=== PATIENT | male | born 1970 | race Hispanic/Latino ===

== ENCOUNTER 2024-07-22 03:00 | Emergency (ER) | payer SELFPAY ==
[2024-07-22 03:04] VITALS: BP 179/113
[2024-07-22 03:50] LABS: Urine Albumin Negative (Neg - Trace); Urine Bilirubin Negative (Negative); Urine Character Clear (Clear); Urine Color Straw; Urine Glucose Negative (Negative); Urine Ketone Negative (Negative); Urine Leukocyte Negative (Negative); Urine Nitrite Negative (Negative); Urine Occult Blood Negative (Negative); Urine Urobilinogen Negative (Neg - 1+)
[2024-07-22 03:55] LABS: % Basophils 0.4 % (0-2); % Eosinophils 1.4 % (0-6); % Immature Granulocytes 0.4 % (0-0.5); % Lymphocytes 23.1 % (20.5-51.1); % Monocytes 8.8 % (1.7-9.3); % Neutrophils 65.9 % (42.2-75.2); Absolute Eosinophils 0.1 10^3/uL (0-0.7); Absolute Lymphocytes 2.2 10^3/uL (1.2-3.4); Absolute Monocytes 0.8 10^3/uL (0.1-0.6); Absolute Neutrophils 6.2 10^3/uL (1.4-6.5); Hematocrit 43.1 % (39.0-52.0); Hemoglobin 14.8 g/dL (13.0-18.0); Mean Corp Hgb Conc. 34.3 g/dL (33.0-37.0); Mean Corpuscular Hgb 28.7 pg (27.0-31.0); Mean Corpuscular Volume 83.5 fL (80.0-94.0); Mean Platelet Volume 11.1 fL (7.4-10.4); Nucleated Red Blood Cells % 0 % (-); Platelet Count 211 10^3/uL (130-400); Red Blood Cell Count 5.16 10^6/uL (4.70-6.10); Red Cell Dist. Width 12.7 % (11.5-14.5); White Blood Cell Count 9.4 10^3/uL (4.8-10.8)
--- NOTE | 2024-07-22 03:57 | ED.GENMED ---
History of Present Illness
<Heather Beltran MD - Last Filed: 07/22/24 05:45>
General
Chief Complaint: Abdominal Pain
Source: patient
Exam Limitations: none
Time Seen by Provider: 07/22/24 03:57
<SURESH French - Last Filed: 07/22/24 04:27>
History of Present Illness
History of Present Illness:
Pt is a 53 y/o M with pmhx of HTN with complaints of left sided abdominal pain x 3 days. The pain is located in the LLQ > LUQ and left flank. There is associated mild abdominal distension and constipation. His last bowel movement was yesterday
afternoon with hard stool. He has not had this before. Denies nausea, vomiting, fever, changes in urination, and blood in stool. Denies any recent antibiotic use or history of kidney stones.
Past History
<SURESH French - Last Filed: 07/22/24 04:27>
Past History
ED Past Medical History: HTN
ED Past Surgical History: Orthopedic (back surgery, knee surgery)
Social History
Tobacco: Smoker
Alcohol: Occasional
Drug: None
Personal:
Living: with family
Review of Systems
<SURESH French - Last Filed: 07/22/24 04:27>
Review of Systems
Allergies reviewed?: Yes
Constitutional: Reports no symptoms
EENT: Reports no symptoms
Respiratory: Reports no symptoms
Cardiac: Reports no symptoms
ABD/GI: Reports abdominal pain (left) and constipated
: Reports flank pain (left)
Musculoskeletal: Reports no symptoms
Skin: Reports no symptoms
Neurological: Reports no symptoms
Endocrine: Reports no symptoms
Hematologic/Lymphatic: Reports no symptoms
Psychiatric: Reports no symptoms
Phy Exam
<Heather Beltran MD - Last Filed: 07/22/24 05:45>
Physical Exam
Physical Exam:
Physical Exam
General: no apparent distress, not acutely ill
Neck: supple.
Heart: s1/s2 regular rate and rhythm, no murmur. equal radial and femoral pulses bilaterally.
Lungs: no acute respiratory distress. clear bilaterally
Abdomen: Soft throughout. Mildly distended. Normal bowel sounds. Left flank tenderness. No pulsatile mass
Neuro: alert and oriented. no focal neurological deficits
Skin: no rash
Psychiatric: well kept. interactive and cooperative
Extremities: no edema. no calf tenderness. negative homans. good distal pulses
<SURESH French - Last Filed: 07/22/24 04:27>
General Physical Exam
General Presentation: well appearing and mild distress
General age: appears stated age
General Skin: warm and dry
General Habitus: normal
General Mental: alert
General Hydration: appears well hydrated
ENT Exam
ENT Exam: EOMI, TM's normal, pharynx normal and neck supple
Eye Exam
Eye Exam: PERRL, EOMI, cornea clear and conjunctiva normal
Cardiovascular Exam
Cardiovascular Exam: regular rate/rhythm and normal peripheral pulses
Pulmonary Exam
Pulmonary Exam: lungs clear, no respiratory distress, no rales, chest non tender, no crackles, no rhonchi, no stridor, no wheezing and no cough
Gastrointestinal Exam
Gastrointestinal Exam: abnormal bowel sounds, cva tenderness (left) and distended
Palpation: left upper quadrant: Moderate tenderness, left lower quadrant: Moderate tenderness, right upper quadrant: No tenderness and right lower quadrant: No tenderness
Auscultation of Abdomen: hypoactive
Neurological Exam
Neurological Exam: alert, oriented x3, CN II-XII intact, no motor deficits, normal reflexs, no sensory deficits and speech normal
Musculoskeletal Exam
Musculoskeletal Exam: full ROM, no edema and neuro vasc intact
Skin Exam
Skin Exam: normal color and warm/dry
Psychiatric Exam
Psychiatric Exam: normal mood/affect
Course
<Heather Beltran MD - Last Filed: 07/22/24 05:45>
Orders/Labs/Results
Orders:
Orders
07/22/24 03:40
Complete Blood Count/With Diff Urgent
Comprehensive Metabolic Panel Urgent
Lipase Urgent
Urinalysis Urgent
Date Specimen was Collected: 07/22/24
Time Specimen was Collected: 03:34
07/22/24 04:25
Abdomen/Pelvis w Contrast CT [CT Abd/pelvis W Iv Cont] Urgent
Comment:
Reason For Exam: LLQ and left flank pain
07/22/24 04:35
Ketorolac [Toradol] 30 mg .ROUTE .STK-MED ONE
Ketorolac [Toradol] 30 mg IV NOW STA
07/22/24 05:35
diazePAM [Valium Injection] 5 mg IV NOW STA
Abnormal Lab Results
07/22/24
03:40
MPV 11.1 H fL
(7.4-10.4)
Absolute Monos (auto) 0.8 H 10^3/uL
(0.1-0.6)
Glucose 116 H mg/dl
(70-99)
07/22/24 03:40
07/22/24 03:40
Vital Signs
Initial and Last Documented VS:
Initial Vital Signs
Temp Pulse Resp BP Pulse Ox
98.4 F 75 18 179/113 98
07/22/24 03:04 07/22/24 03:04 07/22/24 03:04 07/22/24 03:04 07/22/24 03:04
Last Documented Vital Signs
Temp Pulse Resp BP Pulse Ox
98.4 F 65 14 150/93 97
07/22/24 03:04 07/22/24 04:30 07/22/24 04:30 07/22/24 04:21 07/22/24 04:30
<SURESH French - Last Filed: 07/22/24 04:27>
Orders/Labs/Results
Orders:
Orders
07/22/24 03:40
Complete Blood Count/With Diff Urgent
Comprehensive Metabolic Panel Urgent
Lipase Urgent
Urinalysis Urgent
Date Specimen was Collected: 07/22/24
Time Specimen was Collected: 03:34
07/22/24 04:25
Abdomen/Pelvis w Contrast CT [CT Abd/pelvis W Iv Cont] Urgent
Comment:
Reason For Exam: LLQ and left flank pain
07/22/24 04:35
Ketorolac [Toradol] 30 mg .ROUTE .STK-MED ONE
Ketorolac [Toradol] 30 mg IV NOW STA
07/22/24 05:35
diazePAM [Valium Injection] 5 mg IV NOW STA
Abnormal Lab Results
07/22/24
03:40
MPV 11.1 H fL
(7.4-10.4)
Absolute Monos (auto) 0.8 H 10^3/uL
(0.1-0.6)
Glucose 116 H mg/dl
(70-99)
07/22/24 03:40
07/22/24 03:40
Vital Signs
Initial and Last Documented VS:
Initial Vital Signs
Temp Pulse Resp BP Pulse Ox
98.4 F 75 18 179/113 98
07/22/24 03:04 07/22/24 03:04 07/22/24 03:04 07/22/24 03:04 07/22/24 03:04
Last Documented Vital Signs
Temp Pulse Resp BP Pulse Ox
98.4 F 65 14 150/93 97
07/22/24 03:04 07/22/24 04:30 07/22/24 04:30 07/22/24 04:21 07/22/24 04:30
<Heather Beltran MD - Last Filed: 07/22/24 05:45>
MDM/Problems Addressed
Differential Diagnosis Includes:
Acute diverticulitis
Left sided nephrolithiasis
Constipation, musculoskeletal back pain
MDM/Problems Addressed:
Patient presents with acute left lower back pain and left sided abdominal pain
Chronic conditions affecting care: HTN
Acute Exacerbation and/or Progression of Chronic Illness:
Patient is acutely hypertensive, likely due to discomfort and anxiety being in the ED
Acute Exacerbation and/or Progression of Chronic Illness: HTN
<SURESH French - Last Filed: 07/22/24 04:27>
MDM/Problems Addressed
Differential Diagnosis Includes:
Diverticulitis
Left sided nephrolithiasis
<Heather Beltran MD - Last Filed: 07/22/24 05:45>
*Radiology
Radiology exam reviewed: radiology read reviewed
*Pulse Oximetry
Patient hypoxic: no
*EKG
Interpreted by ED Provider?: NA
*Card Punching Machine Operator Interpretation
Rate: Card Punching Machine Operator- N/A
Data Reviewed
Source: patient and spouse
<SURESH French - Last Filed: 07/22/24 04:27>
*Critical Care Note
Total Time (30-74mins, 75-104mins- exclusive of procedures): Not Applicable
<Heather Beltran MD - Last Filed: 07/22/24 05:45>
Patient Management
Social determinants of health affecting care: Living situation and Strong social support
Escalation/DeEscalation of care consider admission/obs:
Patient states that the Toradol made him feel better. Urine has no blood or signs of infection. CT shows no kidney stone nor any acute abdominal or pelvic issues such as acute diverticulitis. Patient's pain may be musculoskeletal in etiology.
Patient will be given a few days of Valium and encouraged to take NSAIDs. Patient encouraged to return with any fever or vomiting
ED Attending Note
<Heather Beltran MD - Last Filed: 07/22/24 05:45>
-
Portions of this chart may have been created with voice recognition software.� Occasional wrong word or��sound alike� substitutions may have occurred due to the inherent limitations of voice recognition software.
Discharge Plan
Departure
Patient Disposition: Home (Routine Discharge)
Date of Disposition: 07/22/24
Time of Disposition: 05:39
Patient with high blood pressure during this ER visit?: Yes
Condition: Good
Covid-19: Not Applicable
Discharge Problem:
Acute left flank pain
Instructions: Flank Pain ED
Prescriptions:
New
diazepam [Valium] 5 mg tablet
5 mg PO BID PRN (Reason: muscle spasm) Qty: 6 0RF
Referrals:
NONE,* [Family Provider] -
Activity Restrictions/Additional Instructions:
Regresar por fiebre o vomitos
[place] 600 mg de motrin cada 6 a 8 horas para el dolor con las comidas
Interventions
Interventions:
*Risk Screen - Suicide Last Done: 07/22/24 03:10
*General Assessment Last Done: 07/22/24 04:06
ED- Fall Risk Assessment Last Done: 07/22/24 04:06
*ED COVID-19 Vaccine History Last Done: 07/22/24 04:06
MW-Xvpcig-Pukdngyvag Assessment Last Done: 07/22/24 04:06
Discharge Date and Time
Print Language: CITIZ[place]
[2024-07-22 04:02] LABS: ALT (SGPT) 37 U/L (0-50); AST (SGOT) 38 U/L (17-59); Albumin 4.6 g/dl (3.5-5.0); Alkaline Phosphatase 98 U/L (38-126); Blood Urea Nitrogen 17 mg/dl (9-20); Calcium 8.8 mg/dl (8.4-10.2); Carbon Dioxide 27 mmol/L (22-30); Chloride 101 mmol/L (98-107); Glucose 116 mg/dl (70-99); Lipase 54 U/L (23-300); Potassium 4.1 mmol/L (3.5-5.1); Sodium 140 mmol/L (135-145); Total Bilirubin 0.8 mg/dl (0.2-1.3); Total Protein 7.8 g/dl (6.3-8.2); eGFR > 60.00
[2024-07-22 04:21] VITALS: BP 150/93
[2024-07-22] MEDS: TORADOL 30 MG IV (04:36)
[2024-07-22] MEDS: VALIUM INJECTION 5 MG IV (06:10)
[2024-07-22 06:15] VITALS: BP 155/96
== END 2024-07-22 06:25 | disposition home or self-care (01) ==
LOC: EMR 03:00
PROVIDERS: EMERGENCY PHYSICIAN Emergency Medicine
DX: R10.32 Left lower quadrant pain (principal); R10.12 Left upper quadrant pain; I10 Essential (primary) hypertension; F17.200 Nicotine dependence, unspecified, uncomplicated
CPT/HCPCS: 99284; 96374; 96375; 74177; 80053; 81003; 83690; 85025; Q9967

== ENCOUNTER 2025-08-19 10:46 | Day surgery (SDC) | payer OTHER, SELFPAY | END 2025-08-19 12:40 | disposition home or self-care (01) | LOC: GI 10:46 | PROVIDERS: ATTENDING PHYSICIAN Student in an Organized Health Care Education/Training Program | DX: Z12.11 Encounter for screening for malignant neoplasm of colon (principal); K57.30 Diverticulosis of large intestine without perforation or abscess without bleeding; K64.8 Other hemorrhoids; D12.3 Benign neoplasm of transverse colon | CPT/HCPCS: 45385; 88305 ==